=== PATIENT | male | born 1980 | race African-American/Black ===

== ENCOUNTER 2020-01-22 09:30 | Outpatient (CLI) | payer OTHER, SELFPAY ==
--- NOTE | ~2020-01-22 | US_ITS ---
US breast RT complete DATE: 01/22/2020 10:09 INDICATION: Right breast pain for 2 months TECHNIQUE: Real-time imaging of the complete right breast COMPARISON: None FINDINGS: No cyst or solid mass or suspicious shadowing of the right breast is detected. IMPRESSION: BI-RADS Category 0: Incomplete; need additional imaging evaluation The patient is 39 years old. The patient is of age for initial screening mammogram if not already per formed. However, given the history of mastodynia, diagnostic bilateral mammogram is recommended. Ultr asound does not supplant mammography for screening or for diagnostic purposes. Reviewed, dictated and finalized at [facility]. Reviewed, dictated and finalized at location [facility]. IMPRESSION: BI-RADS Category 0: Incomplete; need additional imaging evaluation The patient is 39 years old. The patient is of age for initial screening mammog zara if not already performed. However, given the history of mastodynia, diagnos tic bilateral mammogram is recommended. Ultrasound does not supplant mammograph y for screening or for diagnostic purposes.
== END 2020-01-22 09:31 | disposition home or self-care (01) ==
PROVIDERS: PCP Internal Medicine; Visit Provider Clinical Nurse Specialist
DX: N64.4 Mastodynia (principal)
CPT/HCPCS: 76641

== ENCOUNTER → 2020-09-11 14:07 | Outpatient (CLI) | payer OTHER, SELFPAY ==
--- NOTE | ~2020-09-11 | MR_ITS ---
EXAMINATION: MR brain/brain stem wo/w con DATE: 09/11/2020 15:14 INDICATION: Hyperprolactinemia. TECHNIQUE: Magnetic resonance imaging (MRI) of the brain and brainstem was performed without and with 20 mL MultiHance intravenous contrast. Whole-brain sequences included sagittal T1-weighted FSE, axia l diffusion-weighted FS EPI, axial T2*-weighted GRE, axial T2-weighted FLAIR Propeller, and axial T2- weighted Propeller. Small kasyv-yf-odmv sequences included sagittal and coronal T1-weighted FSE cente red at the pituitary. Postcontrast sequences included small rvzpl-[id number] coronal T1-weighted FSE in a time course and sagittal T1-weighted FSE and whole-brain axial T1-weighted FSE. Apparent diffusion coefficient (ADC) maps were created. COMPARISON: None. FINDINGS: The pituitary demonstrates a height of 10 mm and convex superior margin. There is rightward displacement of the infundibulum. In the left side of the pituitary, there is a 12 x 11 x 10 mm hypo enhancing mass. No cavernous sinus invasion. There is no acute ischemic infarct or intracranial hemor rhage. The ventricles are normal in size. There is mild mucosal thickening in the paranasal sinuses. The orbits are normal. The mastoid air cells are normal. IMPRESSION: 1. 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 Reviewed, dictated and finalized at location [facility]. T PROTECTION LEAD
[2020-09-11 14:40] LABS: Estimated Glomerular Filt Rate > 60
== END ==
PROVIDERS: PCP Internal Medicine; Visit Provider Internal Medicine
DX: E22.1 Hyperprolactinemia (principal); E23.7 Disorder of pituitary gland, unspecified
CPT/HCPCS: 70553; A9577

== ENCOUNTER → 2021-04-10 01:23 | Outpatient (CLI) | payer OTHER, SELFPAY ==
[2021-04-11 00:12] LABS: SARS-CoV-2 RNA PCR Negative
== END ==
PROVIDERS: PCP Internal Medicine; Visit Provider Nurse Practitioner
DX: Z20.822 Contact with and (suspected) exposure to COVID-19 (principal)
CPT/HCPCS: C9803; U0003; U0005

== ENCOUNTER → 2021-08-05 09:45 | Outpatient (CLI) | payer OTHER, SELFPAY ==
[2021-08-05 17:59] LABS: SARS-CoV-2 RNA PCR Negative
== END ==
PROVIDERS: PCP Internal Medicine; Visit Provider Nurse Practitioner
DX: Z20.822 Contact with and (suspected) exposure to COVID-19 (principal)
CPT/HCPCS: C9803; U0003; U0005

== ENCOUNTER → 2021-09-22 02:06 | Outpatient (CLI) | payer OTHER, SELFPAY ==
[2021-09-22 14:01] LABS: SARS-CoV-2 RNA PCR Positive
[2021-09-23 14:47] LABS: Influenza A QL RT-PCR Negative (Negative); Influenza B QL RT-PCR Negative (Negative)
== END ==
PROVIDERS: PCP Internal Medicine; Visit Provider Nurse Practitioner
DX: U07.1 COVID-19 (principal)
CPT/HCPCS: 87502; C9803; U0003; U0005

== ENCOUNTER → 2021-11-27 02:42 | Outpatient (CLI) | payer OTHER, SELFPAY ==
[2021-11-27 11:47] LABS: SARS-CoV-2 RNA PCR Negative
== END ==
PROVIDERS: PCP Internal Medicine; Visit Provider Nurse Practitioner
DX: R09.81 Nasal congestion (principal); Z20.822 Contact with and (suspected) exposure to COVID-19
CPT/HCPCS: C9803; U0003; U0005

== ENCOUNTER 2022-09-20 16:01 | Outpatient (CLI) | payer BC, SELFPAY ==
[2022-09-20 20:13] LABS: Hematocrit 50.6 % (42.0-52.0); Hemoglobin 17.3 g/dL (14.0-18.0); Mean Corpuscular HGB Conc 34.2 g/dl (32-36); Mean Corpuscular Volume 87.7 fl (80-100); Platelet Count Result 259 k/mm3 (150-375); Red Blood Count 5.77 M/mm3 (4.6-6.20); Red Cell Distribution Width 13.9 % (11.5-14.5); White Blood Count 5.4 K/mm3 (4.5-10.0)
[2022-09-20 20:52] LABS: Prostate Specific Antigen 0.4 ng/mL (< OR = 4.0)
[2022-09-24 18:26] LABS: Testosterone Free 107.3 pg/mL (35.0-155.0); Testosterone Total 580 ng/dL (250-1100)
== END 2022-09-20 16:02 | disposition home or self-care (01) ==
LOC: ANHGOSHLAB 16:03
PROVIDERS: PCP Internal Medicine; Visit Provider Internal Medicine
DX: E22.1 Hyperprolactinemia (principal); Z79.890 Hormone replacement therapy
CPT/HCPCS: 36415; 84153; 84402; 84403; 85027

== ENCOUNTER 2023-11-11 06:33 | Outpatient (CLI) | payer BC, SELFPAY ==
--- NOTE | ~2023-11-11 | MR_ITS ---
MRI of the cervical spine Clinical History: Radiculopathy Technique: Axial T2-weighted and gradient images, and sagittal T1-weighted, T2-weighted, and STIR cash ges were acquired. Findings: There is no acute fracture or subluxation of the cervical spine. Vertebral bodies maintain normal alignment. No suspicious bone marrow signal abnormality seen. At C2-C3, there is no disc bulge or herniation. No spinal canal stenosis, cord compression, or defini te neural foraminal narrowing. At C3-C4, there is minimal disc osteophyte complex, with probable mild congenital canal stenosis. The re is bilateral neural foraminal narrowing, right worse than left. At C4-C5, there is mild disc osteophyte complex with probable mild canal stenosis, large and congenit al basis. No chetan cord compression. Bilateral neural foramina are preserved. At C5-C6, there is congenital canal stenosis with minimal disc bulge. No chetan cord compression. Ther e is bilateral neural foraminal narrowing. At C6-C7, there is mild canal stenosis, large on a congenital basis. There is minimal disc bulge. The re is bilateral neural foraminal narrowing. No abnormal signal seen in the spinal cord. Paravertebral soft tissues are unremarkable. Impression: Multilevel neural foraminal narrowing, as detailed above. Mild spinal canal stenosis from C3 through C6, largely on a congenital basis, with minimal disc bulge s at these levels as well. Reviewed, dictated and finalized at [facility]. 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 Mild spinal canal stenosis from C3 through C6, largely on a congenital basis, w ith minimal disc bulges at these levels as well.
== END 2023-11-11 06:34 | disposition home or self-care (01) ==
PROVIDERS: PCP Internal Medicine; Visit Provider Internal Medicine
DX: M48.02 Spinal stenosis, cervical region (principal)
CPT/HCPCS: 72141

== ENCOUNTER 2024-04-24 14:17 | Outpatient (CLI) | payer BC, SELFPAY ==
[2024-04-24 18:37] LABS: Basophils Absolute Auto 0.1 K/mm3 (0.0-0.1); Basophils Percent Auto 1.4 % (0.2-1.2); Eosinophils Absolute Auto 0.2 K/mm3 (0-0.3); Eosinophils Percent Auto 3.1 % (0-4.4); Hematocrit 50.9 % (42.0-52.0); Hemoglobin 17.2 g/dL (14.0-18.0); Immature Granulocyte Absolute 0.05 K/mm3 (0.00-0.031); Lymphocytes Absolute Auto 1.53 K/mm3 (0.9-3.2); Lymphocytes Percent Auto 31.2 % (18.3-44.2); Mean Corpuscular HGB Conc 33.8 g/dl (32-36); Mean Corpuscular Hemoglobin 29.4 pg (26-34); Mean Platelet Volume 10.1 fl (7.4-10.4); Monocytes Absolute Auto 0.7 K/mm3 (0.1-0.6); Monocytes Percent Auto 13.3 % (2.6-8.5); Neutrophils Absolute Auto 2.5 K/mm3 (1.3-6.7); Platelet Count Result 246 k/mm3 (150-375); Red Blood Count 5.85 M/mm3 (4.6-6.20); Red Cell Distribution Width 13.5 % (11.5-14.5); White Blood Count 4.9 K/mm3 (4.5-10.0)
[2024-04-24 19:02] LABS: Alanine Aminotransferase 28 U/L (6-50); Albumin Level 4.5 g/dL (3.5-5.1); Alkaline Phosphatase 54 U/L (38-126); Anion Gap 10 mmol/L (4-12); Aspartate Amino Transferase 47 U/L (17-59); Bilirubin,Total 1.8 mg/dL (0.2-1.3); Blood Urea Nitrogen 17 mg/dL (9-20); Calcium 9.6 mg/dL (8.4-10.2); Carbon Dioxide 27 mmol/L (22-30); Chloride 102 mmol/L (98-107); Estimated Glomerular Filt Rate > 60; Glucose 84 mg/dL (65-110); Potassium 3.6 mmol/L (3.4-5.0); Sodium 139 mmol/L (137-145)
[2024-04-24 19:20] LABS: Thyroid Stimulating Hormone 0.658 uIU/mL (0.465-4.680)
[2024-04-29 07:54] LABS: Testosterone Free 162.6 pg/mL (35.0-155.0); Testosterone Total 791 ng/dL (250-1100)
== END 2024-04-24 14:18 | disposition home or self-care (01) ==
LOC: ANHGOSHLAB 14:19
PROVIDERS: PCP Internal Medicine; Visit Provider Clinical Nurse Specialist
DX: E22.1 Hyperprolactinemia (principal); I10 Essential (primary) hypertension; Z79.890 Hormone replacement therapy
CPT/HCPCS: 36415; 80053; 84146; 84402; 84403; 84443; 85025

== ENCOUNTER 2024-04-24 14:39 | Outpatient (CLI) | payer BC, SELFPAY ==
--- NOTE | ~2024-04-24 | XR_ITS ---
XR shoulder RT min 2V Ordering provider: ASHA Leon History: . M25.511 - Pain in right shoulder . Comparison: Slightly FINDINGS: BONES: No acute fracture or dislocation. Degenerative changes in the area of the insertion of the sup raspinatus tendon. JOINT SPACES: The acromioclavicular joint is normal. The glenohumeral joint is normal. SOFT TISSUES: Normal. IMPRESSION: No acute osseous abnormality right shoulder. Reviewed, dictated and finalized at location [facility].
== END 2024-04-24 14:40 ==
PROVIDERS: PCP Internal Medicine; Visit Provider Clinical Nurse Specialist
DX: M25.511 Pain in right shoulder (principal)
CPT/HCPCS: 73030

== ENCOUNTER 2024-05-01 13:33 | Outpatient (CLI) | payer BC, SELFPAY ==
[2024-05-01 20:04] LABS: Prostate Specific Antigen 0.8 ng/mL (< OR = 4.0)
== END 2024-05-01 13:34 | disposition home or self-care (01) ==
LOC: ANHGOSHLAB 13:34
PROVIDERS: PCP Internal Medicine; Visit Provider Internal Medicine
DX: E22.1 Hyperprolactinemia (principal); Z79.890 Hormone replacement therapy; Z80.42 Family history of malignant neoplasm of prostate
CPT/HCPCS: 36415; 84153; G0103

== ENCOUNTER 2024-05-14 12:47 | Outpatient (CLI) | payer BC, SELFPAY ==
--- NOTE | ~2024-05-14 | MR_ITS ---
EXAMINATION: MR shoulder RT wo con DATE: 05/14/2024 13:34 INDICATION: Right shoulder pain. TECHNIQUE: Magnetic resonance imaging (MRI) of the right shoulder was performed without intravenous c ontrast. Sequences included axial PD-weighted FS FSE, coronal oblique PD-weighted FS FSE and T2-weigh thong FS FSE, and sagittal oblique T2-weighted FS FSE and T1-weighted FSE. COMPARISON: Right shoulder radiographs 04/24/2024 FINDINGS: Coracoacromial arch: The acromion undersurface is curved in morphology (type II). There is moderate acromioclavicular join t osteoarthritis including inferiorly directed osteophytes. There is mild subacromial/subdeltoid burs itis. Rotator cuff: There is a full-thickness tear of supraspinatus tendon measuring 10 mm anterior to posterior by 27 mm proximal to distal. There is severe infraspinatus tendinopathy. Teres minor tendon is normal. There is mild subscapularis tendinopathy. The rotator cuff muscle bellies are normal. Biceps tendon and glenoid labrum: Biceps tendon is in bicipital groove. Intra-articular biceps tendon is normal. There is degeneration of the superior glenoid labrum without well-defined tear. Fluid: There is a small glenohumeral joint effusion. Bones/cartilage: There is partial-thickness cartilage loss of glenoid, deep at the central glenoid. There is shallow p artial-thickness cartilage loss of humeral head. IMPRESSION: 1. Full-thickness rotator cuff tear. 2. Moderate glenohumeral joint chondrosis. 3. Moderate acromioclavicular joint osteoarthritis. 4. Small glenohumeral joint effusion and mild subacromial/subdeltoid bursitis. Reviewed, dictated and finalized at location [facility].
== END 2024-05-14 12:48 | disposition home or self-care (01) ==
LOC: GOSHIMG 12:49
PROVIDERS: PCP Internal Medicine; Visit Provider Clinical Nurse Specialist
DX: M75.121 Complete rotator cuff tear or rupture of right shoulder, not specified as traumatic (principal); M94.211 Chondromalacia, right shoulder; M19.011 Primary osteoarthritis, right shoulder; M25.411 Effusion, right shoulder; M75.51 Bursitis of right shoulder
CPT/HCPCS: 73221

== ENCOUNTER 2024-12-28 01:58 | Day surgery (SDC) | payer BC, SELFPAY ==
[2024-12-18 14:16] VITALS: BMI 38.5
--- OUTSIDE RECORDS SUMMARY | 2024-12-28 02:01 | XMS_ITS | Encounter Summary ---
Author Organization [facility] Address [address] [place] [address] Phone Care Team Providers Care Brick Burner Name Role Phone Cliff Jeff DO Primary Care Provider [phone]- [phone] Nia Shaw MD Unavailable +1- [phone] Encounter Details Date Type Department Care Team (Late st Contact Info) Description 11/18/2024 Results Follow-Up [facility] Endocrinology Metabolism and Lipid [address] [facility] Floor [address], [address] [place] [address] Nia Shaw MD [address] [facility] [address] [place] [address] Social History Tobacco Use Types Packs/Day Years Used Date Smoking Tobacco: Never Smokeless Tobacco: Never AUDIT-C Answer Date Recorded Q1: How often do you have a drink containing alc ohol? 2-3 times a week 07/03/2024 Q2: How many drinks containi ng alcohol do you have on a typical day when you are drinking? 1 or 2 07/03/2024 Q3: How often do you have si x or more drinks on one occasion? Never 07/03/2024 Personal Safety Answer Date Recorded Have you ever been in or are you currently in a harmful physical or emotional relationship or is someone making you feel afraid or unsafe? 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 JS documented in this encounter Plan of Treatment Not on file documented as of this encounter Visit Diagnoses Not on filedocumented in this encounter Care Teams Brick Burner Relationship Specialty Start Date End Date Cliff Jeff DO PCP - General Internal Medicine 09/15/20 Nia Shaw MD [address] [address] Consulting Physician Endocrinology 06/15/24 documented as of this encounter
--- OUTSIDE RECORDS SUMMARY | 2024-12-28 02:01 | XMS_ITS | Clinical Summary ---
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 Gender Identity Not on file Sexual Orientation Not on file Plan of Treatment Health Maintenance Due Date Last Done Comments Hepatitis C Virus (HCV) Screening 1979 TdaP Immunization 1979 Hepatitis B Immunization (1 of 3 - 19+ 3-dose series) 1998 Influenza Immunization (#1) 2024 SARS-COV-2 Immunization (2023- season) 2024 08/24/2021, 12/05/2020, 11/14/2020 Respiratory Syncytial Virus (RSV) Immunization (Adult) (1 - 1-dose 75+ series) 2054 Meningococcal Immunization (ACWY) Aged Out No longer eligible b ased on patient's age to complete this topic Pneumococcal Immunization Combined Aged Out No longer eligible b ased on patient's age to complete this topic Rotavirus Immunization Aged Out No lo nger eligible based on patient's age to complete this topic
--- OUTSIDE RECORDS SUMMARY | 2024-12-28 02:01 | XMS_ITS | Referral Summary ---
Author Organization [facility] Address [address] [place] [address] Care Team Providers Care Olive Packer Name Role Phone Cliff Jeff DO Primary Care Provider [phone]- [phone] Nia Shaw MD Unavailable +1- [phone] Encounters Date Type Department Care Team Description 11/18/2024 Results Follow-Up [facility] Endocrinology Metabolism and Lipid [address] [facility] [address] 1, [address] [place] [address] Nia Shaw MD 11/16/2024 Results Follow-Up [facility] Endocrinology Metabolism and Lipid [address] [facility] [address] 1, [address] [place] [address] Nia Shaw MD Prolactinoma (HCC) (Primary Dx) 11/16/2024 10:45 AM CDT Lab [facility] - Lab Collection [address] 5 [place] [address] Prolactinoma (HCC); Secondary male hypogonadism; Gynecomastia 11/16/2024 6:45 AM CDT - 11/16/2024 11:59 PM CDT Hospital Encounter [facility] - MRI [address] [place] [address] Prolactinoma (HCC); Secondary male hypogonadism; Gynecomastia Discharge Disposition: Discharge to home or self care 11/16/2024 10:00 AM CDT Office Visit [facility] Endocrinology Metabolism and Lipid [address] [facility] [address] 1, [address] [place] [address] Nia Shaw MD Prolactinoma (HCC) (Primary Dx); Secondary male hypogonadism 11/12/2024 8:00 AM CDT Office Visit [facility] Orthopaedic Surgery [address] [facility] 12th [place] [id number] Irais Delaney MD S/P right rotator cuff repair (Primary Dx); Nontraumatic complete tear of right rotator cuff 11/07/2024 Orders Only [facility] Endocrinology Metabolism and Lipid [address] [facility] 5th [place] [phone] HangRosaline RAÚL Prolactinoma (HCC) (Primary Dx); Secondary male hypogonadism; Gynecomastia from Last 3 Months Allergies No known active allergies Medications testosterone cypionate (DEPO-TESTOTERO NE) 200 mg/mL injection Inject 0.75 mL (150 mg total) into the muscle as instructed every 7 days tuesday Active BD Luer-Albino Syringe 3 mL 25 x 1 1/2 syringe USE TO INJECT TESTOSTERONE 3 Active hydroCHLOROthia zide (MICROZIDE) 12.5 mg capsuleIndicati ons:hypertensio n Take 1 capsule (12.5 mg total) by mouth every morning 3 Active BD Regular Bevel [place] 18 gauge x 1 1/2 needle USE TO DRAW UP TESTOSTERONE 3 Active hydrOXYzine (VISTARIL) 50 mg capsuleIndicati ons:anxiety Take 1 capsule (50 mg total) by mouth 3 (three) times a day as needed for anxiety 4 Active lamoTRIgine (LaMICtal) 100 mg tabletIndicatio ns:depression Take 1 tablet (100 mg total) by mouth every morning 4 Active cabergoline (DOSTINEX) 0.5 mg tablet Take 1.5 tablets (0.75 mg total) by mouth 2 (two) times a week (1 1/2 tabs 2 times a week) 36 tablet 3 5 Active Active Problems Problem Noted Date Diagnosed Date Nontraumatic complete tear of right rotator cuff 06/11/2024 Biceps tendinitis, right 06/11/2024 Right shoulder pain 06/11/2024 Gynecomastia 03/23/2023 Visual disturbances 12/12/2020 Mucopurulent conjunctivitis 11/04/2020 Prolactinoma 11/04/2020 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 Anal fissure 04/10/2015 Immunizations Immunization Administration Dates Next Due Pfizer SARS-CoV-2 Monovalent Vaccination (12+ Yrs) PURPLE 11/14/2020 Social History Tobacco Use Types Packs/Day Years Used Date Smoking Tobacco: Never Smokeless Tobacco: Never Tobacco Cessation:Counseling Given: Not Answered AUDIT-C Answer Date Recorded Q1: How often [...] on file 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 Gender Identity Male 11/03/2020 9:32 AM SENIOR COST ACCOUNTANT Sexual Orientation Not on file 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 file Not on file Not on f ile Last Filed Vital Signs Vital Sign Reading Time Taken Comments Blood Pressure 129/82 11/16/2024 9:58 AM CDT Pulse 70 11/16/2024 9:58 AM CDT Temperature 36.6 C (97.9 F) 11/16/2024 9:58 AM CDT Respiratory Rate 17 11/16/2024 9:58 AM CDT Oxygen Saturation 93% 07/03/2024 12: 25 PM CDT Inhaled Oxygen Concentration - - Weight 142.2 kg (313 lb 9.6 oz) 11/16/2024 9:58 AM CDT Height 190.5 cm (6' 3 ) 11/16/2024 9:58 AM CDT Body Mass Index 39.2 11/16/2024 9:58 AM CDT Plan of Treatment Not on file Medical Devices Implanted Type Area Political Geographer Device Identifier Shelf Expiration Date Model / Serial / Lot Rt Knee Ortho Hardware,Screw Knee [employer] Fiberloop 3.2mm Drill Pin Needle Shoehorn Cannula Kit Suture Ar-2290 - [id number] Implanted:Qty: 1 on 07/03/2024 by Irais Delaney MD at [facility] Right: Shoulder [employer] [id number] 02/02/2029 AR-2290 / / [id number] [employer] Suture [place] Double Loaded Knotless Fibertak 2.6mm Ar-3632sp - [id number] Implanted:Qty: 1 on 07/03/2024 by Irais Delaney MD at [facility] [place] Right: Shoulder [employer] 01/02/2029 AR-[id number] / / [id number] [employer] Ar-2324 Bcm Swivelock 4.75mm 24.5mm Self Punch Vent Shoulder Arcadia Suture - [id number] Implanted:Qty: 1 on 07/03/2024 by Irais Delaney MD at [facility] [place] Right: Shoulder [employer] 01/03/2028 AR-[id number] M / / [id number] [employer] Ar-2324 Bcm Swivelock 4.75mm 24.5mm Self Punch Vent Shoulder Arcadia Suture - [id number] Implanted:Qty: 1 on 07/03/2024 by Irais Delaney MD at [facility] [place] Right: Shoulder [employer] 01/03/2028 AR-[id number] M / / [id number] Procedures Procedure Name Priority Date/Time Associated Diagnosis Comments PROLACTIN Routine 11/16/2024 10:46 AM CDT Prolactinoma (HCC) MRI BRAIN W WO CONTRAST (PITUITARY) Schedule Routine, Read Routine (OP Routine) 11/16/2024 7:36 AM CDT Prolactinoma (HCC) Secondary male hypogonadism Gynecomastia HEPATITIS C ANTIBODY STAT 07/03/2024 11:51 AM CDT Exposure to blood-borne pathogen from Last 3 Months or Most Recently Relevant to Health Maintenance Results * (ABNORMAL) Prolactin (11/16/2024 10:46 AM CDT) Prolactin 2.0(L) 4.0 - 15.2 ng/mL Blood 11/16/2024 10:4 6 AM CDT 11/16/2024 10:50 AM CDT us Nia Shaw MD LAB BLOOD ORDERABLES Final Result Performing Organization Address City/State/[facility] Co de Phone Number CORDELL CHAIDEZ [facility] Department [place] [address] * MRI Brain W WO Contrast (Pituitary) (11/16/2024 7:36 AM CDT) Anatomical Region Laterality Modality Head and Neck N/A Magnetic Resonan ce 11/16/2024 5:43 PM CDT Impressions 11/16/2024 5:43 PM CDT 1. Interval significant involution of the previously present large left-sided pituitary macroadenoma known to be a prolactinoma. The residual lesion now measures approximately 1.2 x 0.8 x 0.6 cm within the left side of the pituitary gland with extension into the left cavernous sinus. Electronically signed by: Wiliam Oneil MD Narrative 11/16/2024 5:43 PM CDT EXAMINATION: Magnetic resonance imaging (MRI) of the brain and brainstem without and with contrast. HISTORY: Prolactinoma TECHNIQUE: Multiplanar multi-weighted MRI of the brain and brainstem was performed without without and with intravenous contrast using the pituitary protocol. This included acquisitions showing dynamic contrast enhancement of the sella turcica in the coronal plane and a post-contrast T1-Stealth sequence. Contrast information: 20 mL Gadoterate Meglumine IV COMPARISON: 03/14/2023 pituitary brain MRI FINDINGS: There has been a significant interval involution of the previously present large left-sided pituitary gland macroadenoma with extension into left cavernous sinus. On today's examination, the residual lesion is irregularly shaped with T2 hyperintensity within the left anterior aspect of the sella turcica with extension into left cavernous sinus (grade 3). It measures approximately 1.2 x 0.8 x 0.6 cm (AP, TR, CC). The optic chiasm and orbits are normal. There is no abnormal contrast enhancement. The scalp and calvarium are normal. The superior sagittal sinus demonstrates normal venous flow. The corpus callosum is normal in shape and signal intensity. The posterior fossa is unremarkable. The brainstem and craniocervical junction are unremarkable. The ventricles are normal in size and position without evidence of hydrocephalus. Large retention cyst within left maxillary sinus. The visualized portions of the mastoids are unremarkable. The orbits appear normal. Normal flow voids are demonstrated in the carotid arteries and basilar artery. Procedure Note Wiliam Oneil MD - 11/16/2024 EXAMINATION: Magnetic resonance imaging (MRI) of the brain and brainstem without and with contrast. HISTORY: Prolactinoma TECHNIQUE: Multiplanar multi-weighted MRI of the brain and brainstem was performed without without and with intravenous contrast using the pituitary protocol. This included acquisitions showing dynamic contrast enhancement of the sella turcica in the coronal plane and a post-contrast T1-Stealth sequence. Contrast information: 20 mL Gadoterate Meglumine IV COMPARISON: 03/14/2023 pituitary brain MRI FINDINGS: There has been a significant interval involution of the previously present large left-sided pituitary gland macroadenoma with extension into left cavernous sinus. On today's examination, the residual lesion is irregularly shaped with T2 hyperintensity within the left anterior aspect of the sella turcica with extension into left cavernous sinus (grade 3). It measures approximately 1.2 x 0.8 x 0.6 cm (AP, TR, CC). The optic chiasm and orbits are normal. There is no abnormal contrast enhancement. The scalp and calvarium are normal. The superior sagittal sinus demonstrates normal venous flow. The corpus callosum is normal in shape and signal intensity. The posterior fossa is unremarkable. The brainstem and craniocervical junction are unremarkable. The ventricles are normal in size and position without evidence of hydrocephalus. Large retention cyst within left maxillary sinus. The visualized portions of the mastoids are unremarkable. The orbits appear normal. Normal flow voids are demonstrated in the carotid arteries and basilar artery. IMPRESSION: 1. Interval significant involution of the previously present large left-sided pituitary macroadenoma known to be a prolactinoma. The residual lesion now measures approximately 1.2 x 0.8 x 0.6 cm within the left side of the pituitary gland with extension into the left cavernous sinus. Electronically signed by: Wiliam Oneil MD us Nia Shaw MD IMG MRI PROCEDURES F inal Result * Hepatitis C antibody Blood (07/03/2024 11:51 AM CDT) Hep C Ab Nonreactive Nonreactive Comment:Antibodies to HCV no t detected. Does NOT exclude the possibility of recent exposure to HCV. Current interpretive data was last revised on 22 Blood 07/03/2024 11:5 1 AM CDT 07/03/2024 2:58 PM CDT Narrative [facility] - 07/03/2024 3:44 PM CDT Bill to [facility] [id number] Patient is employed by/enrolled at:->[facility] [place] Wiliam Hilton MD LAB MICROBIOLOGY - GENERAL OR DERABLES Final Result [facility] Department [place] [address] from Last 3 Months or Most Recently Relevant to Health Maintenance Insurance [facility] BLUE [place] [employer] [place]ESS [place] Care Teams Olive Packer Relationship Specialty Start Date End Date Cliff Jeff DO PCP - General Internal Medicine 09/15/20 Nia Shaw MD [address] [facility] [address] [address] Consulting Physician Endocrinology 06/15/24
--- OUTSIDE RECORDS SUMMARY | 2024-12-28 02:01 | XMS_ITS | Clinical Summary ---
Author Organization [facility] Address [address] [place] [address] Care Team Providers Care Student Ministry Pastor Name Role Phone Cliff Jeff DO Primary Care Provider [phone]- [phone] Nia Shaw MD Unavailable +1- [phone] Allergies No known active allergies Medications testosterone [...] every morning 3 Active BD Regular Bevel [place] 18 gauge x 1 1/2 needle USE [...] 2 times a week) 36 tablet 3 Active Active Problems Problem Noted Date Diagnosed Date Nontraumatic complete tear of right rotator cuff 06/11/2024 Biceps tendinitis, right 06/11/2024 Right shoulder pain 06/11/2024 Gynecomastia 03/23/2023 Visual disturbances 12/12/2020 Mucopurulent conjunctivitis 11/04/2020 Prolactinoma 11/04/2020 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 Anal fissure 04/10/2015 Encounters Date Type Department Care Team Description 11/18/2024 Results Follow-Up [facility] Endocrinology Metabolism and Lipid [address] [facility] Floor 1, [address] [place] [address] Nia Shaw MD 11/16/2024 10:45 AM CDT Lab [facility] - Lab Collection [address] [facility] [facility] 5 [place] [address] Prolactinoma (HCC); Secondary male hypogonadism; Gynecomastia 11/16/2024 10:00 AM CDT Office Visit [facility] Endocrinology Metabolism and Lipid [address] [facility] Floor 1, [address] [place] [address] Nia Shaw MD Prolactinoma (HCC) (Primary Dx); Secondary male hypogonadism 11/16/2024 6:45 AM CDT - 11/16/2024 11:59 PM CDT Hospital Encounter [facility] - MRI [address] 8 [place] [address] Prolactinoma (HCC); Secondary male hypogonadism; Gynecomastia Discharge Disposition: Discharge to home or self care 11/16/2024 Results Follow-Up [facility] Endocrinology Metabolism and Lipid [address] [facility] Floor 1, [address] [place] [address] Nia Shaw MD Prolactinoma (HCC) (Primary Dx) 11/12/2024 8:00 AM CDT Office Visit [facility] Orthopaedic Surgery [address] [place] [address] 12th [place] [address] [place] [address] Irais Delaney MD S/P right rotator cuff repair (Primary Dx); Nontraumatic complete tear of right rotator cuff 11/07/2024 Orders Only [facility] Endocrinology Metabolism and Lipid [address] [facility] 5th [place] [address] [place] [id number] Rosaline Mauricio RMA Prolactinoma (HCC) (Primary Dx); Secondary male hypogonadism; Gynecomastia from Last 3 Months Immunizations Immunization Administration Dates Next Due Pfizer SARS-CoV-2 Monovalent Vaccination (12+ Yrs) PURPLE 11/14/2020 Surgical History Surgery Date Site/Laterality Comments CHOLECYSTECTOMY 09/05/2014 - 09/04/2015 KNEE SURGERY 09/05/1993 - 09/04/1994 Right ANAL FISSURECTOMY unknown date Medical History Medical History Date Comments Depression Sleep apnea 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 HTN (hypertension) Family History Medical History Relation Name Comments Heart disease Father Hypertension Father Hypothyroidism Mother's Sister Colon cancer Other Paternal uncle Relation Name Status Comments Father Mother's Sister Other Paternal uncle Other Social History Tobacco Use Types Packs/Day Years [...] on file Legal Sex 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 Gender Identity Male 11/03/2020 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 Sexual Orientation Not on file 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 on file Not on file Not on f ile Obstetrics History Last Filed Vital Signs Vital Sign Reading [...] 11/16/2024 9:58 AM CDT Plan of Treatment Health Maintenance Due Date Last Done Comments Colon Cancer Screening-Colonoscopy 1979 Depression Screening 1979 Prostate Cancer Screening-PSA 1979 DTaP/Tdap/Td Vaccine (1 - Tdap) 1990 Varicella Vaccines (1 of 2 - 13+ 2-dose series) 1992 Hepatitis B Screening 1997 Regular Well Visit/Exam 18-64 1997 Covid-19 Vaccine (2 - 2023-2 5 season) 2024 11/14/2020 Influenza Vaccine (Season Ended) 2025 Hepatitis C Screening Completed 07/03/2024 HPV Vaccines Aged Out No longer eligi ble based on patient's age to complete this topic Pneumococcal vaccine <65 Aged Out No longer eligible based on patient's age to complete this topic Medical Devices Implanted Type Area Commissioning Manager Device Identifier Shelf Expiration Date Model / Serial / Lot Rt Knee Ortho Hardware,Screw Knee [employer] Fiberloop 3.2mm Drill Pin Needle [employer] Cannula Kit Suture Ar-2290 - [id number] Implanted:Qty: 1 on 07/03/2024 by Irais Delaney MD at [facility] [place] Right: Shoulder [employer] [id number] 02/02/2029 AR-2290 / / [id number] [employer] Suture [place] Double Loaded Knotless Fibertak 2.6mm Ar-3632sp - [id number] Implanted:Qty: 1 on 07/03/2024 by Irais Delaney MD at [facility] [place] Right: Shoulder [employer] 01/02/2029 AR-[id number] / / [id number] [employer] Ar-2324 Bcm Swivelock 4.75mm 24.5mm Self Punch Vent Shoulder [place] Suture - [id number] Implanted:Qty: 1 on 07/03/2024 by Irais Delaney MD at [facility] Right: Shoulder [employer] 01/03/2028 AR-2324BC M / / [id number] [employer] Ar-2324 Bcm [place]ivel[place] 4.75mm 24.5mm Self Punch Vent Shoulder [place] Suture - [id number] Implanted:Qty: 1 on 07/03/2024 by Irais Delaney MD at [facility] Right: Shoulder [employer] 01/03/2028 AR-2324BC M / / [id number] Procedures Procedure Name Priority Date/Time Associated Diagnosis [...] Shaw MD LAB BLOOD ORDERABLES Final Result [facility] Department [place] [address] * MRI Brain W WO Contrast (Pituitary) [...] sinus. Electronically signed by: Wiliam Oneil MD Nia Shaw MD IMG MRI PROCEDURES F inal Result * Hepatitis C antibody Blood (07/03/2024 11:51 AM CDT) Hep C Ab Nonreactive Nonreactive Comment:Antibodies to HCV no t detected. Does NOT exclude the possibility of recent exposure to HCV. Current interpretive data was last revised on 22 Blood 07/03/2024 11:5 1 AM CDT 07/03/2024 2:58 PM CDT [facility] - 07/03/2024 3:44 PM CDT Bill to [facility] [employer] - 7740 Patient is employed by/enrolled at:->[facility] us Wiliam Hilton MD LAB MICROBIOLOGY - GENERAL OR DERABLES Final Result [facility] Department [place] [address] from Last 3 Months or Most Recently Relevant to Health Maintenance Insurance [employer] [place] [employer] [place] [employer] [place] Care Teams Student Ministry Pastor Relationship Specialty Start Date End Date Cliff Jeff DO PCP - General Internal Medicine 09/15/20 [place] [address] [place] [address] Consulting Physician Endocrinology 06/15/24
[2024-12-28 07:44] VITALS: BP 135/79; PULSE 63; RESP 16; TEMP 35.9; O2SAT 99; BMI 38.4
[2024-12-28] MEDS: LACTATED RINGERS 1,000 ML 150 ML IV CONT (08:00)
--- NOTE | 2024-12-28 08:17 | WPDANESEPPF ---
Anes - Initial Pre Proc Eval Procedure: Operation Date: 12/28/24 09:00 Proposed Procedures p Screening Colonoscopy - Thomas Harding MD Date/Time: 12/28/24 08:17 Surgeon: Thomas Harding MD Pre Op Diagnosis: screening colon Patient Data Age: 44 Gender: M Height: 1.91 m Weight: 139.4 kg Last Vital Signs Temp 35.9 C L 12/28/24 07:44 Pulse 63 12/28/24 07:44 Resp 16 12/28/24 07:44 BP 135/79 12/28/24 07:44 Pulse Ox 99 12/28/24 07:44 O2 Del Method Room Air 12/28/24 07:44 Allergies Allergy/AdvReac Type Severity Reaction Status Date / Time No Known Allergies Allergy Verified 12/28/24 07:49 Home Medications ?Medication ?Instructions ?Recorded ?Confirmed ?Type needle (disp) 18 G 18 gauge x 1 #100 ea 04/18/23 10/30/24 Rx 1/2 (BD Regular Bevel [place]) testosterone cypionate 200 mg/mL 150 mg (0.75 mL) IM WEEKLY #10 mL 05/04/24 12/28/24 Rx intramuscular oil syringe with needle 3 mL 25 x 1 #100 ea 07/18/24 10/30/24 Rx 1/2 (BD Luer-[place] Syringe) cabergoline 0.5 mg tablet 0.5 mg PO 2XW #24 tabs 08/27/24 12/28/24 Rx cariprazine 1.5 mg capsule 1.5 mg PO DAILY #1 cap 10/30/24 12/28/24 Rx (Vraylar) hydrochlorothiazide 12.5 mg capsule See Rx Instructions .Route 12/20/24 12/28/24 Rx .COMPLEX #90 caps Patient hx anesthesia problems: none Family hx anesthesia problems: none Results Review: All pre-operative results and documents have been reviewed as part of the pre-operative evaluation. [facility] Past Medical History Medical History (Updated 12/28/24 @ 08:20 by Kaleb Frideman MD) ROSE (obstructive sleep apnea) Family history of prostate cancer Prolactinoma, benign Pituitary macroadenoma Hyperprolactinemia Gynecomastia, male Long-term current use of testosterone cypionate Constipation Depression Chicken pox Allergies Atypical nevus Cervicalgia Surgical History Surgical History History of rectal surgery History of gastric surgery H/O knee surgery Family History Family History Father Hypertension Family history of prostate cancer Social History Social History Smoking status: Current some day smoker Tobacco type: cigars Alcohol intake: current Alcohol use details: social Substance use: current Substance use type: marijuana Do You Feel Safe in your Home?: Yes Lack of Transportation: No Lack of Food: Never True Current Housing: I Have Housing Concerned About Future Housing: No Difficulty Paying Gas/Electric Bills: No Difficulty Paying for Meds: No Currently Unemployed: No Education: Bachelor's Degree Difficulty w/ Childcare or Family Care: YES Anes - Eval Final PreProcedure Day of Procedure 12/28/24 08:17 Patient weight: obese Heart: regular rate and rhythm Lungs: clear to auscultation Airway: Mallampati scale class II Neurological: alert and oriented Last oral intake: >/= 8 hours ASA classification: III Emergent: no Anesthetic plan: proceed Anesthesia type and monitoring: general GIVS and standard monitoring Results Review: All pre-operative results and documents have been reviewed as part of the pre-operative evaluation. Informed Consent: The patient's anesthetic plan and its attendant risks and benefits were discussed with the patient/family/POA. Questions were solicited and answers provided to the satisfaction of the patient/family/POA.
--- NOTE | 2024-12-28 08:57 | PM.IMHP ---
H&P: HPI History of Present Illness Date/Time: 12/28/24 08:57 Chief Complaint: Screening colonoscopy Narrative: This is the patient's first colonoscopy. There are no GI symptoms and there is no family history of colorectal cancer. Review of Systems Review of Systems: All systems reviewed & are unremarkable except as noted in HPI and below PMFSH Past Medical History Medical History (Updated 12/28/24 @ 08:20 by Kaleb Friedman MD) ROSE (obstructive sleep apnea) Family history of prostate cancer Prolactinoma, benign Pituitary macroadenoma Hyperprolactinemia Gynecomastia, male Long-term current use of testosterone cypionate Constipation Depression Chicken pox Allergies Atypical nevus Cervicalgia Surgical History Surgical History History of rectal surgery History of gastric surgery H/O knee surgery Family History Family History Father Hypertension Family history of prostate cancer Social History Social History Smoking status: Current some day smoker Tobacco type: cigars Alcohol intake: current Alcohol use details: social Substance use: current Substance use type: marijuana Do You Feel Safe in your Home?: Yes Lack of Transportation: No Lack of Food: Never True Current Housing: I Have Housing Concerned About Future Housing: No Difficulty Paying Gas/Electric Bills: No Difficulty Paying for Meds: No Currently Unemployed: No Education: Bachelor's Degree Difficulty w/ Childcare or Family Care: YES Meds Home Medications and Allergies Home Medications ?Medication ?Instructions ?Recorded ?Confirmed ?Type needle (disp) 18 G 18 gauge x 1 #100 ea 04/18/23 10/30/24 Rx 1/2 (BD Regular Bevel [place]) testosterone cypionate 200 mg/mL 150 mg (0.75 mL) IM WEEKLY #10 mL 05/04/24 12/28/24 Rx intramuscular oil syringe with needle 3 mL 25 x 1 #100 ea 07/18/24 10/30/24 Rx 1/2 (BD Luer-[place] Syringe) cabergoline 0.5 mg tablet 0.5 mg PO 2XW #24 tabs 08/27/24 12/28/24 Rx cariprazine 1.5 mg capsule 1.5 mg PO DAILY #1 cap 10/30/24 12/28/24 Rx (Vraylar) hydrochlorothiazide 12.5 mg capsule See Rx Instructions .Route 12/20/24 12/28/24 Rx .COMPLEX #90 caps Allergies Allergy/AdvReac Type Severity Reaction Status Date / Time No Known Allergies Allergy Verified 12/28/24 07:49 Vital Signs Vital Signs - 24 hr 12/28/24 07:44 Temperature 96.6 F L Pulse Rate 63 Respiratory Rate 16 Blood Pressure 135/79 Pulse Oximetry 99 Oxygen Delivery Room Air Exam Const: General: cooperative and healthy appearing Resp: Effort & Inspection: normal respiratory effort and able to speak in complete sentences Auscultation: clear to auscultation bilaterally Cardio: Rate: regular rate Rhythm: regular rhythm GI: Inspection: normal to inspection GI Palp: No No hepatosplenomegaly present Auscultation: normal bowel sounds Rectal Exam: deferred Skin: General skin exam: normal color Psych: Appearance: grossly normal Mental Status: mental status grossly normal Assessment and Plan Assessment and plan (1) Colon cancer screening: Code(s): Z12.11 - Encounter for screening for malignant neoplasm of colon Status: Acute Assessment and Plan: The patient is deemed a good candidate for the procedure. Consent signed. Will proceed.
[2024-12-28] MEDS: SIMETHICONE ORAL SUSPENSION 20 MG/0.3 ML 30 ML BOTTLE 0.6 ML IRRIGATION (09:16)
[2024-12-28 09:21] VITALS: BP 104/69; PULSE 59; RESP 18; O2SAT 97
[2024-12-28 09:31] VITALS: BP 123/71; PULSE 48; RESP 18; O2SAT 97
[2024-12-28 09:41] VITALS: BP 125/85; PULSE 45; RESP 17; O2SAT 97
== END 2024-12-28 09:55 | disposition home or self-care (01) ==
PROVIDERS: PCP Internal Medicine; Referring Provider Internal Medicine; Visit Provider Internal Medicine Gastroenterology
PROC: 0DJD8ZZ Inspection of Lower Intestinal Tract, Via Natural or Artificial Opening Endoscopic (ICD-10-PCS; CPT 45378; principal; 2024-12-28 09:00)
DX: Z12.11 Encounter for screening for malignant neoplasm of colon (principal); K57.30 Diverticulosis of large intestine without perforation or abscess without bleeding; E22.1 Hyperprolactinemia; F32.A Depression, unspecified; G47.33 Obstructive sleep apnea (adult) (pediatric); D35.2 Benign neoplasm of pituitary gland; F17.290 Nicotine dependence, other tobacco product, uncomplicated; F12.90 Cannabis use, unspecified, uncomplicated; E66.9 Obesity, unspecified; Z68.38 Body mass index [BMI] 38.0-38.9, adult; Z79.890 Hormone replacement therapy; Z98.890 Other specified postprocedural states; Z98.84 Bariatric surgery status; Z80.42 Family history of malignant neoplasm of prostate
CPT/HCPCS: 45378; J2003; J2704; J7120